=== PATIENT | male | born 1970 | race African-American/Black ===

== ENCOUNTER 2022-11-20 06:01 | Outpatient (CLI) | payer OTHER, BC, SELFPAY | END 2022-11-20 06:02 | disposition home or self-care (01) | PROVIDERS: Visit Provider Family Medicine | DX: S89.92XA Unspecified injury of left lower leg, initial encounter (principal); V58.0XXA Driver of pick-up truck or van injured in noncollision transport accident in nontraffic accident, initial encounter; Y92.411 Interstate highway as the place of occurrence of the external cause | CPT/HCPCS: A0425; A0429 ==

== ENCOUNTER 2022-11-20 06:28 | Emergency (ER) | payer OTHER, BC, SELFPAY ==
[2022-11-20 06:35] VITALS: BP 134/79; PULSE 84; RESP 18; TEMP 36.7; O2SAT 98; BMI 38.3
--- NOTE | 2022-11-20 06:59 | CRLHL7_ITS ---
For Patients: As a result of the Cures Act, medical imaging exams and procedure reports are released immediately into your electronic medical record. You may view this report before your referring provider. If you have questions, please contact your health care provider. Indication: Injury Technique: A total of three views of the left knee were acquired. Comparison: None Findings: Bones: No acute fracture, dislocation or destructive process. Joint spaces: Severe osteoarthritis medially, mild osteoarthritis laterally and mild to moderate osteoarthritis in the patellofemoral compartment. Small joint effusion. Soft tissues: Enthesopathy of the quadriceps and patellar tendons. Impression: Significant degenerative changes. Small joint effusion. No visible acute fracture, dislocation or destructive process. Dictated by Mathew Alarcon MD @ 11/20/2022 7:27:18 AM (Electronically Signed)
[2022-11-20] MEDS: ACETAMINOPHEN 500 MG TABLET 1000 MG PO (07:30)
[2022-11-20] MEDS: IBUPROFEN 400 MG TABLET 800 MG PO (07:30)
--- NOTE | 2022-11-20 07:37 | ED.NURSE ---
pt resting in bed, talking on phone. rates L knee pain 05/08. tylenol and ibuprofen given. ice provided. dr. arreguin in talking to pt. pt looking for ride home.
[2022-11-20 07:38] VITALS: BP 139/94; PULSE 86; RESP 18; O2SAT 100
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
== END 2022-11-20 08:30 | disposition home or self-care (01) ==
PROVIDERS: Emergency Provider Family Medicine
DX: S80.02XA Contusion of left knee, initial encounter (principal); M17.9 Osteoarthritis of knee, unspecified; V43.53XA Car driver injured in collision with pick-up truck in traffic accident, initial encounter
CPT/HCPCS: 73562; 99282; 99284; A9270